=== PATIENT | female | born 1995 | race Caucasian/White ===

== ENCOUNTER 2018-11-09 11:02 | Inpatient (IN) | payer BC ==
[2018-11-09 12:05] VITALS: BMI 38.9
[2018-11-09] MEDS ORDERED: Ondansetron PF 4 MG/2 ML Vial IVP PRN ×3 (12:55→20:21)
[2018-11-09] MEDS ORDERED: hydrALAZINE 20 MG/ML VIAL SLOW IVP PRN ×4 (12:55→20:21)
[2018-11-09] MEDS ORDERED: Calcium Gluc 4.6 MEQ/10 ML (100 MG/ML) SLOW IVP PRN (12:55)
[2018-11-09] MEDS ORDERED: CEFAZOLIN 2 GM in Premix Bag 1 BAG IVPB SCH (13:00)
[2018-11-09] MEDS ORDERED: Magnesium Sulfate 20 gm/500 ml 20 GM/500 ML BAG IVPB SCH (13:00)
[2018-11-09] MEDS ORDERED: Bicitra 30 ML UDCUP PO SCH (13:00)
[2018-11-09] MEDS: Magnesium Sulfate 20 GM/WATER 500 ML BAG IVPB SCH ×2 (13:14→13:53)
[2018-11-09] MEDS: Lactated Ringer's 1,000 ML IV SCH (13:52)
[2018-11-09 14:19] LABS: Hemoglobin 10.3 g/dL (12.0-16.0); Mean Corpuscular HGB CONC 32.1 g/dL (32.0-36.0); Mean Corpuscular Volume 68.6 fL (78.0-98.0); Platelet Count 286 thou/uL (130-400); RBC Distribution Width 15.9 % (11.5-14.5); Red Blood Cell (RBC) Count 4.68 mill/uL (4.20-5.40); White Blood Cell (WBC) Count 7.6 thou/uL (4.8-10.8)
[2018-11-09 14:40] LABS: ALT (SGPT) 12 U/L (8-55); AST (SGOT) 17 U/L (5-34); Albumin 3.2 g/dL (3.5-5.0); Alkaline Phosphatase 143 U/L (40-150); Anion Gap 12 mmol/L (10-20); BUN (Urea Nitrogen) 9 mg/dL (7.0-18.7); Bilirubin, Total 0.2 mg/dL (0.2-1.2); Calc. Creatinine Clearance 225 mL/min (70-130); Calcium 8.4 mg/dL (7.8-10.44); Carbon Dioxide 21 mmol/L (22-29); Chloride 106 mmol/L (98-107); Estimated GFR-MDRD Greater than 90; Glucose 76 mg/dL (70-105); Potassium 4.1 mmol/L (3.5-5.1); Protein, Total 6.2 g/dL (6.0-8.3); Sodium 135 mmol/L (136-145)
[2018-11-09 14:54] LABS: Syphilis Antibody Nonreactive (Nonreactive); Syphilis Antibody Index 0.02 S/CO (<1.00 Non-Reactive)
[2018-11-09 14:56] LABS: HBSAg Index 0.18 S/CO (0-0.99); Hep B Surf Ag Non-Reactive S/CO (NonReactive)
[2018-11-09] MEDS ORDERED: diphenhydrAMINE 50 MG/ML VIAL ONE ×2 (16:12→19:22)
[2018-11-09] MEDS ORDERED: Ondansetron PF 4 MG/2 ML Vial ONE ×2 (16:12→18:57)
[2018-11-09] MEDS ORDERED: Dexamethasone 20 MG/5 ML VIAL ONE (16:12)
[2018-11-09] MEDS ORDERED: Ketorolac Tromethamine 30 MG/ML VIAL ONE ×2 (16:12→18:57)
[2018-11-09] MEDS ORDERED: MORPHINE 5 MG/10 ML PF VIAL ONE (18:56)
[2018-11-09] MEDS ORDERED: Oxytocin 10 UNITS/ML VIAL ONE (18:57)
[2018-11-09] MEDS ORDERED: Dexamethasone 4 mg/ml Vial ONE (18:57)
[2018-11-09] MEDS ORDERED: PHENYLEPHRINE-NS 100 MCG/ML 10 ML SYRINGE ONE (18:57)
[2018-11-09] MEDS ORDERED: Midazolam HCl 2 mg/2 ml Vial ONE (19:45)
[2018-11-09] MEDS ORDERED: Ondansetron HCl/PF 4 MG/2 ML Vial IVP PRN (20:07)
[2018-11-09] MEDS ORDERED: Naloxone HCl 0.4 mg/ml Vial IV PRN (20:07)
[2018-11-09] MEDS ORDERED: L&D-Morphine 4 MG/ML VIAL SLOW IVP PRN (20:07)
[2018-11-09] MEDS ORDERED: Promethazine HCl 25 MG/ML VIAL IM PRN (20:07)
[2018-11-09] MEDS ORDERED: Promethazine HCl 25 MG SUPP PR PRN (20:07)
[2018-11-09] MEDS ORDERED: HYDROmorphone 2 MG/ML VIAL SLOW IVP PRN (20:07)
[2018-11-09] MEDS ORDERED: Naloxone HCl 0.4 mg/ml Vial IVP PRN ×2 (20:07)
[2018-11-09] MEDS ORDERED: Meperidine HCl/PF 25 MG/ML VIAL SLOW IVP PRN (20:07)
[2018-11-09] MEDS ORDERED: diphenhydrAMINE 50 MG/ML VIAL IVP PRN (20:07)
[2018-11-09] MEDS ORDERED: Communication Order-Pharmacy FS SCH (20:15)
[2018-11-09] MEDS ORDERED: Measles/Mumps/Rubella 10 MCG/0.5 ML VIAL SC ONE (20:21)
[2018-11-09] MEDS ORDERED: Varicella virus, LIVE 0.5 ML VIAL SC ONE (20:21)
[2018-11-09] MEDS ORDERED: NS / Oxytocin 40 units/1000ml 1,000 ML IV SCH (20:30)
[2018-11-10] MEDS: Ketorolac Tromethamine 30 MG/ML VIAL IVP SCH ×3 (01:19→17:26)
[2018-11-10 05:33] LABS: Hemoglobin 9.1 g/dL (12.0-16.0); Mean Corpuscular HGB CONC 30.8 g/dL (32.0-36.0); Mean Corpuscular Hemoglobin 20.9 pg (27.0-31.0); Mean Corpuscular Volume 67.9 fL (78.0-98.0); Mean Platelet Volume 11.4 fL (7.4-10.4); Platelet Count 268 thou/uL (130-400); RBC Distribution Width 15.9 % (11.5-14.5); Red Blood Cell (RBC) Count 4.35 mill/uL (4.20-5.40); White Blood Cell (WBC) Count 15.2 thou/uL (4.8-10.8)
[2018-11-10] MEDS ORDERED: HYDROcodone/Acetaminophen 5/325 mg Tablet PO PRN ×2 (08:15)
[2018-11-10] MEDS: Lactated Ringer's 1,000 ML IV SCH (11:32)
--- NOTE | 2018-11-10 23:50 | PDOC.PP ---
Post Progress Note Post Day #: 1 PO intake tolerated: yes Flatus: yes Ambulation: yes Weight Weight 234 lb - Physical Examination General: NAD Cardiovascular: no m/r/g, RRR Respiratory: clear to auscultation bilaterally, non-labored breathing Abdominal: + bowel sounds, lochia, no distention, appropriately TTP Extremities: negative homans (B) Skin: CS incision dry & intact, no rash Neurological: no gross focal deficits Psychiatric: A&Ox3, normal affect Result Diagrams: 11/10/18 04:55 11/09/18 14:08 Additional Labs: Post Labs Blood Type O POSITIVE 11/09/18 14:28 Hep Bs Antigen Non-Reactive S/CO (NonReactive) 11/09/18 14:08
[2018-11-11] MEDS ORDERED: Lanolin Ointment 7 GM TUBE TOP PRN (04:15)
[2018-11-11] MEDS ORDERED: Measles/Mumps/Rubella 10 MCG/0.5 ML VIAL SC ONE (04:15)
[2018-11-11] MEDS ORDERED: Promethazine HCl 25 MG/ML VIAL IM PRN (04:15)
[2018-11-11] MEDS ORDERED: Adacel (T-DAP) 0.5 ML SYRINGE IM ONE (04:15)
[2018-11-11] MEDS ORDERED: Bisacodyl 10 MG SUPP PR PRN (04:15)
[2018-11-11] MEDS ORDERED: Ondansetron PF 4 MG/2 ML Vial IVP PRN (04:15)
[2018-11-11] MEDS ORDERED: HYDROcodone/Acetaminophen 5/325 mg Tablet PO PRN ×2 (04:15)
[2018-11-11] MEDS ORDERED: hydrALAZINE 20 MG/ML VIAL SLOW IVP PRN (04:15)
[2018-11-11] MEDS ORDERED: Simethicone Chewable 80 MG TAB PO PRN (04:15)
[2018-11-11] MEDS ORDERED: Varicella virus, LIVE 0.5 ML VIAL SC ONE (04:15)
[2018-11-11] MEDS ORDERED: diphenhydrAMINE 25 MG CAP PO PRN (04:15)
[2018-11-11] MEDS ORDERED: Ibuprofen 800 MG TAB PO SCH (06:00)
[2018-11-11] MEDS: Docusate Calcium (SURFAK) 240 MG CAP PO SCH ×2 (08:58→21:37)
[2018-11-11] MEDS: Ibuprofen 800 MG TAB PO SCH ×2 (13:37→21:36)
--- NOTE | 2018-11-12 03:59 | PDOC.PP ---
Post Progress Note Post Day #: 2 PO intake tolerated: yes Flatus: yes Ambulation: yes Vital Signs (12 hours) Temp Pulse Resp BP BP 11/12/18 02:27 98.5 F 74 16 123/83 11/11/18 19:55 98 F 78 20 138/78 Weight Weight 234 lb - Physical Examination General: NAD Cardiovascular: no m/r/g, RRR Respiratory: clear to auscultation bilaterally, non-labored breathing Abdominal: + bowel sounds, lochia, no distention, appropriately TTP Extremities: negative homans (B) Skin: CS incision dry & intact, no rash Neurological: no gross focal deficits Psychiatric: A&Ox3, normal affect Result Diagrams: 11/10/18 04:55 11/09/18 14:08 Additional Labs: Post Labs Blood Type O POSITIVE 11/09/18 14:28 Hep Bs Antigen Non-Reactive S/CO (NonReactive) 11/09/18 14:08
--- NOTE | 2018-11-12 04:02 | PDOC.LDHP ---
Labor and Delivery H&P Grav: 4 Para: 3 Current complications: other (severe preeclampsia) Current medications: none Previous surgical history: low tranverse CS Allergies/Adverse Reactions: Allergies Allergy/AdvReac Type Severity Reaction Status Date / Time No Known Allergies Allergy Verified 11/09/18 13:51 - Physical Exam Vital signs reviewed and normal: yes General: NAD, resting Heart: RRR Lungs: CTAB Abdomen: gravid Extremeties: pitting edema FHT: category 1 - Assessment for Severe Preeclampsia at 36 weeks - Plan Plan: admit to L&D, to OR for section
--- NOTE | 2018-11-12 04:04 | PDOC.PP ---
Post Progress Note Post Day #: 3 PO intake tolerated: yes Flatus: yes Ambulation: yes Vital Signs (12 hours) Temp Pulse Resp BP BP 11/12/18 02:27 98.5 F 74 16 123/83 11/11/18 19:55 98 F 78 20 138/78 Weight Weight 234 lb - Physical Examination General: NAD Cardiovascular: no m/r/g, RRR Respiratory: clear to auscultation bilaterally, non-labored breathing Abdominal: + bowel sounds, lochia, no distention Extremities: negative homans (B) Skin: CS incision dry & intact, no rash Neurological: no gross focal deficits Psychiatric: A&Ox3, normal affect Result Diagrams: 11/10/18 04:55 11/09/18 14:08 Additional Labs: Post Labs Blood Type O POSITIVE 11/09/18 14:28 Hep Bs Antigen Non-Reactive S/CO (NonReactive) 11/09/18 14:08
--- NOTE | 2018-11-12 04:19 | OP ---
DATE OF PROCEDURE: 11/09/2018 TIME OF SERVICE: At 1933 hours [place] Daylight Savings Time. PREOPERATIVE DIAGNOSES: Intrauterine at 36 weeks and 2 days with severe preeclampsia and a history of section. POSTOPERATIVE DIAGNOSES: Intrauterine at 36 weeks and 2 days with severe preeclampsia and a history of section. PROCEDURE PERFORMED: Repeat low transverse section using a Pfannenstiel skin incision. FINDINGS: Viable female infant, weighing 2355 g or 5 pounds 3 ounces. Apgars 8 and 9. QUANTITATIVE BLOOD LOSS: 380 mL. COMPLICATIONS: None. DETAILS OF THE PROCEDURE: The patient was consented and taken back to the operating room where spinal anesthesia was found to be adequate. She was then prepped and draped in the normal sterile fashion. A timeout was performed by the entire operative team. The incision was then marked with a marking pen tested using sharp pickups. An incision was then made with a scalpel. The incision was carried through the adipose tissue down to the underlying rectus fascia using both sharp dissection as well as cautery. Once the fascia was identified, it was incised in the midline and then the fascial incision was carried through in both lateral directions using sharp as well as cautery dissection techniques. Next, the superior aspect of the rectus fascia was grasped with 2 Matt clamps, which was tented up and the rectus muscles were dissected off using blunt dissection as well as cautery dissection. Similarly, the inferior aspect of the fascial incision was grasped with 2 Matt clamps, tented up and the rectus muscles were dissected off bluntly as well as sharply. Next, the rectus muscles were in the midline and the peritoneum identified. The peritoneum was then carefully grasped with 2 hemostats and entered sharply. The peritoneal incision was extended superiorly and inferiorly and bladder blade was placed in the lower abdomen. At this point, the uterus was identified and the bladder flap was then developed using pickups with teeth as well as Metzenbaum scissors in both lateral directions. The bladder flap was then dissected downwards using the saturator operator's finger as well as Metzenbaum scissors. The bladder blade was replaced. The lower uterine segment was then identified and entered sharply using a clean scalpel. The uterine incision was then dissected downwards until thin layer of muscle remained and this was entered bluntly using a hemostat to avoid any injury to the baby. The uterine incision was then stretched using two fingers in both lateral directions. An amniotomy was performed artificially using a hemostat and the baby was delivered using fundal pressure in a gentle fashion. Once out, the baby's mouth and nose were bulb suctioned, cord clamped and cut, and the baby was handed to waiting attendants. Next, the uterus was exteriorized, cleared of all clots and debris and the uterine incision was repaired with #1 Monocryl in a running locking fashion. A 2nd suture of the same type was used to obtain complete hemostasis at the uterine incision. The bladder flap was reapproximated using 3-0 Monocryl. Next, patient's left and right adnexa were inspected and appeared to be within normal limits. The posterior cul-de-sac was blotted dry and hemostasis assured. One more look at the uterine incision demonstrated hemostasis. Next, the uterus was replaced back within the abdomen. The peritoneum was reapproximated using 2-0 Monocryl without difficulty. The rectus muscles were then allowed to come back together and 0 chromic was used to aid in reapproximation of the muscle as necessary. The rectus fascia was then reapproximated in a running fashion using 0 Vicryl suture. The adipose tissue was then examined and appeared to be well approximated without any obvious separations. Finally, the skin was reapproximated with 3-0 Monocryl on a Karsten needle without difficulty and Dermabond adhesive was applied to the skin. Once the glue was dry, the drapes were removed and the patient was transferred to an ambulatory bed where she was taken to recovery awake and in stable condition. Sponge, lap, and needle counts were correct x3. Job ID: [id number]
[2018-11-12] MEDS: Ibuprofen 800 MG TAB PO SCH ×4 (04:59→21:08)
[2018-11-12 06:28] LABS: Hemoglobin 8.3 g/dL (12.0-16.0); Mean Corpuscular HGB CONC 31.1 g/dL (32.0-36.0); Mean Corpuscular Hemoglobin 21.8 pg (27.0-31.0); Mean Platelet Volume 9.8 fL (7.4-10.4); Platelet Count 226 thou/uL (130-400); RBC Distribution Width 15.7 % (11.5-14.5); Red Blood Cell (RBC) Count 3.81 mill/uL (4.20-5.40)
[2018-11-12 06:49] LABS: ALT (SGPT) 11 U/L (8-55); AST (SGOT) 18 U/L (5-34); Albumin 2.8 g/dL (3.5-5.0); Alkaline Phosphatase 108 U/L (40-150); Anion Gap 11 mmol/L (10-20); BUN (Urea Nitrogen) 11 mg/dL (7.0-18.7); Bilirubin, Total 0.2 mg/dL (0.2-1.2); Calc. Creatinine Clearance 240 mL/min (70-130); Carbon Dioxide 24 mmol/L (22-29); Chloride 109 mmol/L (98-107); Estimated GFR-MDRD Greater than 90; Globulin 2.5 g/dL (2.4-3.5); Glucose 76 mg/dL (70-105); Potassium 4.6 mmol/L (3.5-5.1); Protein, Total 5.3 g/dL (6.0-8.3); Sodium 139 mmol/L (136-145)
[2018-11-12] MEDS: Ketorolac Tromethamine 30 MG/ML VIAL IVP SCH (08:13)
[2018-11-12] MEDS: Lactated Ringer's 1,000 ML IV SCH ×2 (08:17→08:18)
[2018-11-12] MEDS: Adacel (T-DAP) 0.5 ML SYRINGE IM ONE (08:19)
[2018-11-12] MEDS: Docusate Calcium (SURFAK) 240 MG CAP PO SCH ×2 (09:06→21:08)
[2018-11-12] MEDS ORDERED: NIFEdipine XL 30 MG TAB PO SCH ×2 (10:00→12:30)
[2018-11-13] MEDS: Ibuprofen 800 MG TAB PO SCH (05:08)
[2018-11-13 06:02] VITALS: TEMP 98.2
[2018-11-13 08:59] VITALS: BP 128/82
[2018-11-13] MEDS: Docusate Calcium (SURFAK) 240 MG CAP PO SCH (09:27)
[2018-11-13] MEDS ORDERED: NIFEdipine XL 60 MG TAB PO SCH (10:30)
[2018-11-13] MEDS: Adacel (T-DAP) 0.5 ML SYRINGE IM ONE (11:03)
== END 2018-11-13 11:15 | disposition home or self-care (01) | DRG 788 ==
LOC: L&D/OP 11:02 → L&D 13:46 → 3SW 11-11 10:12
PROVIDERS: ADMIT Obstetrics & Gynecology; ATTEND Obstetrics & Gynecology
PROC: 10D00Z1 Extraction of Products of Conception, Low, Open Approach (ICD-10-PCS; principal; 2018-11-09)
DX: O14.14 Severe pre-eclampsia complicating childbirth (principal); O34.211 Maternal care for low transverse scar from previous cesarean delivery; Z3A.36 36 weeks gestation of pregnancy; Z37.0 Single live birth
CPT/HCPCS: 36415; 51702; 80053; 81003; 85027; 86780; 86850; 86900; 86901; 87340; 90715; J0360; J0690; J1100; J1200; J1885; J2250; J2274; J2405; J2590; J3475